=== PATIENT | female | born 1960 | race Caucasian/White ===

== ENCOUNTER → 2017-10-21 | Outpatient (CLI) | payer MEDICARE, BC ==
[~2017-10-21] MED LIST: ALPRAZOLAM 0.50.5 MG PO; AMATIZA PO; APAP500; APPEAREX2500 MCG PO; ASPIR 8181 MG PO; BENADRYL ALLERG25 MG; BIOTIN2500 MCG PO; CALCIUM; CALCIUM 500 +1 EAC5 PO; CENTRUM SILVER1 EAC1; CENTRUM SILVER1 EAC3 PO; CINNAMON PLUS1 EACH PO; CIPRO500 MG PO; CITRACAL-VIT D1 EACH PO; CITRATE OF MAG296 ML PO; CITRICAL; CLEOCIN HCL150 MG PO; COLACE100 MG PO; COMPAZINE10 MG PO; COMPLETE TABLE1 EACH PO; CYCLOBENZAPRINE10 MG PO; EFFEXOR XR150 MG PO; FIBER CHOICE1 EACH PO; FIBER GUMMIES2.5 GM PO; FISH OIL 1,0001 EAC5; FISH OIL 1,001000 M2 PO; FISH OIL 1,2001 EAC4 PO; FLAGYL; FLAGYL500 MG; FLAGYL500 MG PO; FOLIC ACID0.4 MG PO; GALZIN25 MG PO; GRANISETRON HCL1 MG; HYDROCODON-ACE1 EACH PO; HYDROCODONE-AP1 EA15 PO; HYOSCYAMINE0.375 M2 PO; IBUPROFEN 600600 M1 PO; IRON325 PO; KEFLEX500 MG PO; KEPPRA1000 MG PO; LAMICTAL 25 MG25 M1 PO; LAMICTAL100 MG PO; LAMOTRIGINE; LEVOTHYROXIN0.025 MG PO; LOTREL 10-40 M1 EACH PO; MAGNESIUM; MAGNESIUM OXID400 MG PO; MAGNESIUM250 M1; MAGNESIUM250 M1 PO; MELATONIN5 M1 PO; MIRALAX255 GM; NITROFURANTOIN100 MG PO; NORCO 5-325 TA1 EACH PO; ONDANSETRON HCL4 M2 PO; ONDANSETRON ODT4 MG PO; OS-CAL ULTRA T1 EACH PO; PERCOCET 5-3251 EACH PO; PHENERGAN 25 MG25 M1 PO; PHENERGAN 25 MG25 MG PO; PREMARIN0.625 MG PO; PRILOSEC40 MG PO; PROBIOTIC1 EAC1 PO; PROMETHAZINE HC25 M1 PO; SEROQUEL 50 MG50 MG NG; SINGULAIR 10 MG10 M1 PO; SLIPPERY ELM; SYNTHROID; SYNTHROID200 MCG; TEMODAR180 MG; TOPROL XL100 MG PO; UNICOMPLEX M TA1 TA1 PO; VALIUM5 MG PO; VITAMIN C 250250 MG; VITAMIN C 250250 MG PO; VITAMIN D35000 UNI1 PO; VITAMINC500 PO; XANAX 0.5 MG0.5 M1 PO; XANAX 0.5 MG0.5 MG PO; ZANTAC 150MG T150 MG PO; ZINC; ZOFRAN ODT4 MG PO; ZOLPIDEM TART12.5 MG
[2017-10-21 11:01] LABS: ABSOLUTE BASOPHILS 0.1 thou/uL (0.0-0.2); ABSOLUTE EOSINOPHILS 0.1 thou/uL (0.0-0.7); ABSOLUTE LYMPHOCYTES 1.4 thou/uL (0.8-5.3); ABSOLUTE MONOCYTES 0.4 thou/uL (0.0-1.2); ABSOLUTE NEUTROPHILS 2.2 thou/uL (1.6-8.1); BASOPHILS 1.3 %; EOSINOPHILS 1.6 %; HEMATOCRIT 36.5 % (37.0-47.0); HEMOGLOBIN 12.2 gm/dL (12.0-15.0); LYMPHOCYTES 33.9 %; MCH 31.7 pg (26.0-34.0); MCHC 33.6 g/dL (28.0-37.0); MCV 94.3 fL (80.0-100.0); MONOCYTES 10.5 %; MPV 7.5 fl. (7.2-11.1); NUCLEATED RBCS 0 /100WBC; PLATELET COUNT* 185 thou/uL (150-400); POLYS 52.7 %; RBC 3.86 mil/uL (4.20-5.00); WBC 4.1 thou/uL (4.0-11.0)
[2017-10-23 05:10] LABS: FREE TESTOSTERONE 0.2 pg/mL (0.0-4.2)
== END ==
LOC: M.LAB 10:32
PROVIDERS: Dermatology
DX: L65.0 Telogen effluvium (principal); L64.0 Drug-induced androgenic alopecia

== ENCOUNTER → 2018-03-08 | Outpatient (CLI) | payer OTHER | LOC: M.CT 14:00 | DX: Z13.6 Encounter for screening for cardiovascular disorders (principal) ==

== ENCOUNTER → 2018-07-18 | Outpatient (CLI) | payer MEDICARE, BC | LOC: M.WC 08:00 | DX: L59.8 Other specified disorders of the skin and subcutaneous tissue related to radiation (principal); C71.9 Malignant neoplasm of brain, unspecified; G62.9 Polyneuropathy, unspecified; F41.9 Anxiety disorder, unspecified; Z90.710 Acquired absence of both cervix and uterus; Y84.2 Radiological procedure and radiotherapy as the cause of abnormal reaction of the patient, or of later complication, without mention of misadventure at the time of the procedure ==

== ENCOUNTER 2018-09-30 13:55 | Inpatient (IN) | payer MEDICARE, BC ==
[~2018-09-30] VITALS: Ht 160 cm; Wt 85.7 kg
[~2018-09-30 13:55] MED LIST changes: +ANTIVERT25 MG PO; +BENADRYL25 MG PO; +FUROSEMIDE 20 M20 MG PO; +KEPPRA 500 MG500 MG PO; +OXYCODONE HCL 55 MG PO; +REQUIP5 MG PO
[2018-09-30 14:05] VITALS: BP 125/64
[2018-09-30] MEDS ORDERED: PROTONIX40 M1 PO (14:17)
[2018-09-30] MEDS ORDERED: EFFER-K 20 MEQ20 ME1 PO (14:19)
[2018-09-30] MEDS ORDERED: BENADRYL25 MG PO (14:20)
[2018-09-30] MEDS ORDERED: APPLE CIDER VI600 MG PO (14:21)
[2018-09-30 15:04] LABS: HEMOGLOBIN 9.4 gm/dL (12.0-15.0); MCH 33.7 pg (26.0-34.0); MCHC 33.5 g/dL (28.0-37.0); MCV 100.6 fL (80.0-100.0); MPV 6.9 fl. (7.2-11.1); NUCLEATED RBCS 0 /100WBC; PLATELET COUNT* 273 thou/uL (150-400); RBC 2.79 mil/uL (4.20-5.00); RDW-CV 17.7 % (10.5-14.5); WBC 2.5 thou/uL (4.0-11.0)
[2018-09-30 15:28] LABS: ALBUMIN 3.2 g/dL (3.4-5.0); ALKALINE PHOSPHATASE 46 U/L (46-116); ANION GAP 4 mmol/L (7-16); BUN 4 mg/dL (7-18); CALCIUM 8.3 mg/dL (8.5-10.1); CHLORIDE 102 mmol/L (98-107); CO2 34 mmol/L (21-32); GLUCOSE 120 mg/dL (70-99); POTASSIUM 3.5 mmol/L (3.5-5.1); SGOT 91 U/L (15-37); SGPT 67 U/L (30-65); SODIUM 140 mmol/L (136-145); TOTAL BILIRUBIN 0.6 mg/dL (<0.1-1.0); TOTAL PROTEIN 6.1 g/dL (6.4-8.2); TROPONIN-I LEVEL <0.06 ng/mL (<0.06)
[2018-09-30 15:52] LABS: ABSOLUTE LYMPHOCYTES 1.2 thou/uL (0.8-5.3); ABSOLUTE MONOCYTES 0.7 thou/uL (0.0-1.2); ABSOLUTE NEUTROPHILS 0.7 thou/uL (1.6-8.1)
[2018-09-30 15:53] LABS: ANISOCYTOSIS 1+; PLATELET ESTIMATE ADEQUATE; POLYCHROMASIA 1+
--- NOTE | 2018-09-30 16:38 | EKG ---
[place] [address] ELECTROCARDIOGRAM REPORT Name: ELISE RECINOS Room: [facility]#: [id number] Admission: 09/30/18 Attend Phys: Discharge: Date of : 58 Report #: [id number] THIS REPORT FOR: //name// [facility] ED Test Date: 2018-09-30 Test Time: 14:42:08 Pat Name: ELISE JONESDepartment: Room: Gender: F Platform Beater: Tadeo HOANG : 1960 Requested By: Ailyn Hernandez Order Number: [id number] MD: Arnaldo Napoles Measurements Intervals Strawberry Rate: 92 P: 65 AK: 136 QRS: 5 QRSD: 90 T: 32 QT: 377 QTc: 467 Interpretive Statements Sinus rhythm Low voltage, precordial leads Borderline T abnormalities, anterior leads Compared to ECG 11/01/2016 17:40:20 Low QRS voltage now present T-wave abnormality now present Right ventricular hypertrophy no longer present Electronically Signed On 09-30-2018 16:37:53 CDT by Arnaldo Napoles [email or web address] <ELECTRONICALLY SIGNED> By: Arnaldo Napoles MD, FAC 09/30/18 1637 [id number] Arnaldo Napoles MD, FAC /EPI
[2018-09-30 21:59] VITALS: BP 134/71
[2018-09-30 22:01] VITALS: BP 96/48
[2018-10-01 03:58] LABS: HEMOGLOBIN 8.5 gm/dL (12.0-15.0); MCH 34.1 pg (26.0-34.0); MCHC 34.1 g/dL (28.0-37.0); MCV 100.1 fL (80.0-100.0); MPV 7.2 fl. (7.2-11.1); RBC 2.5 mil/uL (4.20-5.00); RDW-CV 17.1 % (10.5-14.5); WBC 2.8 thou/uL (4.0-11.0)
--- NOTE | 2018-10-01 03:58 | NUR ---
ASSUMED CARE OF PT AT THE TIME OF ADMISSION FROM ER. PT ALERT, ORIENTED AND PLEASANT WITH CARE. REDNESS NOTED ON BILATERAL LEGS, NO SKIN BREAKDOWN. ELEVATED LEGS ON PILLOWS. PAIN MED GIVEN, FALL PRECAUTIONS IN PLACE. WILL MONITOR PT.
[2018-10-01 04:54] LABS: CALCIUM 7.9 mg/dL (8.5-10.1); CREATININE 0.9 mg/dL (0.6-1.3); MAGNESIUM 1.6 mg/dL (1.8-2.4); POTASSIUM 3.2 mmol/L (3.5-5.1)
[2018-10-01 06:00] VITALS: BP 103/42
--- NOTE | 2018-10-01 14:52 | NUR ---
PT TRANSFERED TO /S, ROOM 310. REPORT GIVEN TO MEGAN GUTIERREZ. ALL PT BELONGINGS SENT WITH PT INCLUDING CELL PHONE, TABLET, WATER PIC, AND ELECTRIS TOOTH BRUSH.
[2018-10-01 15:00] VITALS: BP 125/55
--- NOTE | 2018-10-01 17:19 | NUR ---
PATIENT TRANSFERED FROM ICU THIS AFTERNOON. PATIENT HAD COMPLAINTS OF PAIN AND ITCHING, TREATED ADEQUATELY WITH MEDICATIONS GIVEN. PATIENT IS UP WITH ASSIST OF ONE. PATIENT HAS SLEPT THIS EVENING. PATIENT DENIES ANY NEEDS AT THIS TIME. CALL LIGHT WITHIN REACH. WILL CONITNUE TO MONITOR.
[2018-10-01 18:02] VITALS: BP 179/54
[2018-10-02 00:09] VITALS: BP 112/55
[2018-10-02 04:16] LABS: HEMATOCRIT 26.3 % (37.0-47.0); HEMOGLOBIN 8.8 gm/dL (12.0-15.0); MCH 33.3 pg (26.0-34.0); MCHC 33.3 g/dL (28.0-37.0); MCV 99.8 fL (80.0-100.0); MPV 7.4 fl. (7.2-11.1); NUCLEATED RBCS 0 /100WBC; PLATELET COUNT* 257 thou/uL (150-400); RBC 2.63 mil/uL (4.20-5.00); RDW-CV 17.2 % (10.5-14.5); WBC 2.8 thou/uL (4.0-11.0)
[2018-10-02 04:26] LABS: CALCIUM 8.7 mg/dL (8.5-10.1); CREATININE 0.9 mg/dL (0.6-1.3); MAGNESIUM 1.9 mg/dL (1.8-2.4); POTASSIUM 3.2 mmol/L (3.5-5.1)
--- NOTE | 2018-10-02 05:19 | NUR ---
PATIENT UP WITH STANDBY TO BATHROOM SHE GOT READY FOR BED. PT THEN IN BED AND LEFT FOR HOME. PT SLEPT WELL. PT WITH MIDNIGHT SAT AT 85% ON RA. PT DROWSY AND INCOHERENT. PT PLACED ON O2 @ 2 LITERS AND SATS CAME UP IMMEDIATELY TO 95%. PT LEFT ON 2LITERS AT THIS TIME. PT CONTINUED TO BE DROWSY AND MIDNIGHT DIAZEPAM HELD AT THIS TIME. PT WITH SALINE LOCK IN LT AC, PATENT. PT DENIES NEEDS AT THIS TIME. FREQUENTLY USED ITEMS AND CALL LIGHT WITHIN REACH. SIDERAILS UPX3 AND BED ALARM ON. WILL CONTINUE TO MONITOR.
[2018-10-02 06:19] LABS: ABSOLUTE LYMPHOCYTES 1.1 thou/uL (0.8-5.3); ABSOLUTE MONOCYTES 0.6 thou/uL (0.0-1.2); ABSOLUTE NEUTROPHILS 1.1 thou/uL (1.6-8.1); ATYPICAL LYMPHS 9 %; MYELOCYTES 1 %
[2018-10-02 06:20] LABS: ANISOCYTOSIS 1+; PLATELET ESTIMATE ADEQUATE; POLYCHROMASIA 2+
[2018-10-02 07:25] VITALS: BP 101/58
--- NOTE | 2018-10-02 09:18 | CON ---
[address] [address] CONSULTATION Name: ELISE RECINOS Room: [address] IN M.R.#: [id number] Admission: 09/30/18 Attend Phys: Rita Bautista MD Discharge: Date of : 58 Report #: [id number] THIS REPORT FOR: //name// CC: Rita Herman MD REASON FOR CONSULTATION: History of GBM and leukopenia. HISTORY OF PRESENT ILLNESS: The patient is a 58-year-old female seen at [facility]. She has a history of a GBM found in late 2017. She had laser ablation type therapy and has been on Temodar of varying schedule since that time. Note that she also has a history of a grade 2 astrocytoma in 2008. The patient was seen because of bilateral extremity edema, pain, redness and maybe low-grade fever. She was also found to have mildly low white count about 2.5 with an ANC of 700. The patient describes that she has had her last MRI of the head, was several weeks ago that they were happy with. She talks about a rash and itching being present since about a week before Jb, though in talking with her significant other outside the room sound like the actual visible rash may have been excoriations from scratching. She still itches a lot on her lower extremities. She has been off steroids since about mid-July. She has gained about 60 pounds in the last 5 months. She does have some leg swelling, both her and her significant other think it is slightly better today. It sounds like she had low-grade fevers but this is like it has maybe been going on for several weeks. Note that also an ultrasound of the legs yesterday did not reveal a clot, the CT angiogram did not for any pulmonary emboli. She is currently on some antibiotics. Today, she mostly is complaining about leg swelling, leg pain, leg itching. To me it sounds neuropathy/neuritic in nature. In the past, this is like she has declined Neurontin but I do not think she had tried Cymbalta either. She is worried about weight gain with the Cymbalta. She is worried about medications being given that was not what they were originally "designed" for. The patient describes her thinking is so slow though she can eventually get the words. No swallowing trouble. She did feel short of breath, but I wonder if it is from the 60-pound weight gain. She has not had any new bowel troubles. She did have some slight reflux type troubles. She has not had any new constipation or diarrhea, no blood in her urine or stool, has red legs as mentioned above. PAST MEDICAL HISTORY: Notable for a grade 2 astrocytoma in 2008, sounds like it was completely resected, maybe had radiation therapy, then chemo during the year. She does know the drugs, sounds like it might have been IV, so I am not sure if it is PCV or what she got . In 04/2018, she was found to [place] [address] CONSULTATION Name: ELISE RECINOS Room: [address] IN M.R.#: [id number] Admission: 05/10/19 Attend Phys: Rita Bautista MD Discharge: Date of : 58 Report #: [id number] It sounds she underwent some sort of laser therapy that has been on Temodar and is also on dexamethasone for several different regimens. As noted above, the last steroid was given in mid-July. Also, has a history of headaches, may be migraines, possible neuropathy. Also, fibromyalgia, also had cholecystectomy, bladder sling x 2, kidney stones, hypothyroid, seizures in the past, tonsillectomy, appendectomy, breast augmentation, hysterectomy, bilateral feet surgeries. MEDICATIONS: At this time in the hospital currently include Lovenox 40 mg at bedtime, melatonin 10 at bedtime, meclizine 25 mg daily, levetiracetam 500 b.i.d., furosemide 20 daily IV, lactobacillus 1 tab daily, ceftriaxone 1 g daily, Valium 5 mg q. 6 scheduled, pantoprazole 40 mg daily, Xanax 0.5 mg before meals, levothyroxine 0.025 mg daily, IV electrolyte replacements. 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 FAMILY HISTORY: Noncontributory. PHYSICAL EXAMINATION: GENERAL: The patient appears her stated age, quite anxious, slight pressured speech. VITAL SIGNS: Height 5 feet 3 inches, 160 cm, weight 189 pounds, 85.7 kilograms. Blood pressure is currently 103/42, respirations 16, pulse 110, temperature 98.2. MOOD: She is slightly anxious and conversant. Admits to slight tape delay in her thinking though she finds the words, moving all extremities. Speech and thought pattern generally normal. LUNGS: Clear to auscultation. No obvious wheezes or rhonchi. HEART: Regular rate. LYMPHATICS: No enlarged lymph nodes in the supraclavicular, cervical, axillary region. ABDOMEN: Slightly obese. EXTREMITIES: He does have some slight edema at the mid shins and mid calves. Redness is mildly pink up to mid thighs. There was no clear demarcation. The patient does have pain on exam with continued pressure. LABORATORY DATA: Electrolytes fairly normal, though potassium is 3.2, BUN 3, creatinine 0.9. AST 91, note that it was elevated in August at 89 also; total bilirubin 0.6; magnesium 1.6; ALT also slightly elevated at 67, it was 160 back in August; total protein 6.1, albumin 3.2. Recent white count today is 2.8, yesterday 2.5; hemoglobin yesterday 9.4, today 8.5 after hydration and medications and redraw: MCV 100.6, RDW 17.1, platelets 240. Differential nonacute. Neutrophils ANC yesterday was 700[place] [address] CONSULTATION Name: ELISE RECINOS Room: [address] ADM IN [facility]#: [id number] Admission: 09/30/18 Attend Phys: Rita Bautista MD Discharge: Date of : 58 Report #: [id number] IMAGING: This admit included the CT angiogram that showed no evidence of pulmonary emboli or acute process although bilateral venous Dopplers showed no evidence of DVT. There was a small amount of subcutaneous edema noted in both lower extremities. Chest x-ray showed no acute cardiopulmonary abnormalities. ASSESSMENT AND PLAN: 1. History of glioblastoma multiforme status post laser ablation, also has been on Temodar. The patient reports and significant other seemed to confer the recent MRI was good without progression. I am not sure if there is response or not. Would continue holding next dose, which probably is not due for another several weeks anyway until the patient sees Dr. Herman again. 2. Leukopenia, very mild, would expect recovery. We will check again and follow serial counts. 3. Anemia, likely related to blood counts. No history of bleeding. 4. Possible cellulitis. Agree with antibiotics and Infectious Disease consult though a large part of this may be chronic redness and swelling and perhaps vascular disease or neuropathy. 5. Redness and pain and itching of legs. I wonder if this is probably neuritic in nature. She has been reluctant to try Neurontin in the past. May be worthwhile considering alpha lipoic acid or L-glutamine as an outpatient. Could also consider followup with palliative care to help with symptom management in the office. She met with him once before. 6. Hypothyroid. Continue replacement. 7. Fibromyalgia. No current active medications. 8. Sleep disorder, has been on melatonin. 9. History of seizures. Continue levetiracetam. We will follow with you. <ELECTRONICALLY SIGNED> By: Billy Obrien MD 10/02/18 0918 1037 [id number] Obrien MD /nt
--- NOTE | 2018-10-02 16:14 | NUR ---
PATIENT RESTING IN BED. PATIENT HAS HAD COMPLAINTS OF GENERAL PAIN TODAY, TREATED ADEQUATELY WITH MEDICATION. PATIENT HAS BEEN UP AD JOCELINE IN ROOM. PATIENT HAS GOOD APPETITE. PATIENT HAS BEEN NAPPING THIS AFTERNOON, OXYGEN ON AT 2L/NC WHILE SLEEPING. PATIENT DENIES ANY NEEDS AT THIS TIME. CALL LIGHT WITHIN REACH. WILL CONTINUE TO MONITOR.
[2018-10-02 21:05] VITALS: BP 111/50
[2018-10-03 04:38] LABS: HEMATOCRIT 26.9 % (37.0-47.0); HEMOGLOBIN 9.1 gm/dL (12.0-15.0); MCH 33.7 pg (26.0-34.0); MCHC 33.7 g/dL (28.0-37.0); MPV 7.6 fl. (7.2-11.1); RBC 2.69 mil/uL (4.20-5.00)
[2018-10-03 05:07] LABS: CALCIUM 8.9 mg/dL (8.5-10.1); CREATININE 0.8 mg/dL (0.6-1.3); MAGNESIUM 1.7 mg/dL (1.8-2.4); POTASSIUM 3.8 mmol/L (3.5-5.1)
--- NOTE | 2018-10-03 05:12 | NUR ---
PT SLEPT MOST OF SHIFT. ASSESSMENT DOCUEMENTED. MEDS GIVEN PER E-MAR. IV PATENT, ABX INFUSED. PAIN MEDS GIVEN PER E-MAR FOR HEAD, BACK AND LEG PAIN WITH RELIEF. PT KEPT LEGS ELEVATED MOST OF SHIFT. PT UP TO BATHROOM WITH ASSIST OF 1. WILL CONTINUE WITH PLAN OF CARE.
[2018-10-03 07:40] VITALS: BP 109/62
--- NOTE | 2018-10-03 09:03 | CON ---
[address] [address] CONSULTATION Name: ELISE RECINOS Room: [address] IN .R.#: [id number] Admission: 09/30/18 Attend Phys: Rita Bautista MD Discharge: Date of : 58 Report #: [id number] THIS REPORT FOR: //name// CC: Rita SETH DATE OF SERVICE: 10/02/2018 INFECTIOUS DISEASE CONSULTATION REASON FOR CONSULTATION: Cellulitis legs. HISTORY OF PRESENT ILLNESS: A 58-year-old white woman admitted through the Emergency Room with swelling and pain of lower extremities, diagnosed with cellulitis, started on ceftriaxone. The patient is rather somnolent today. She asked me whether I was told about her and what she meant to tell me is that she is "strong as a bull." PAST MEDICAL HISTORY: Glioblastoma multiforme recently diagnosed on treatment with chemotherapy. Cholecystectomy. Bladder sling. Kidney stones. Seizure disorder from brain cancer. Breast augmentation, hysterectomy, bilateral foot surgery. DRUG ALLERGIES: SULFA, METRONIDAZOLE, TRAZODONE AND HYDROMORPHONE. MEDICATIONS: The patient on treatment with enoxaparin, melatonin, Fermental as directed, meclizine, levetiracetam, furosemide, lactobacillus acidophilus, ceftriaxone 1 g IV daily, diazepam, pantoprazole, alprazolam, levothyroxine, potassium, phosphorus and magnesium replacement per protocol, p.r.n., Benadryl, ropinirole, oxycodone p.r.n., ondansetron p.r.n. She did receive a dose of vancomycin as well. SOCIAL HISTORY: See H and P. FAMILY HISTORY: See H and P. REVIEW OF SYSTEMS: As above. PHYSICAL EXAMINATION: GENERAL: Well-developed somnolent woman, afebrile since admission. VITAL SIGNS: Temperature 98, pulse 74, respirations 20, BP 112/55, height 5 feet 3 inches, weight 189 pounds. HEENMT: Within range. NECK: Supple. [place]GS: [place] [address] CONSULTATION Name: ELISE RECINOS Room: [address] [place] [facility]#: [id number] Admission: 09/30/18 Attend Phys: Rita Bautista MD Discharge: Date of : 58 Report #: [id number] HEART: S1, S2. ABDOMEN: Soft, no masses or megaly. EXTREMITIES: Erythema of legs, some swelling of legs and some point tenderness of legs. NEUROLOGIC: Grossly within normal limits. LABORATORY DATA: Sodium 144, potassium 3.2, BUN 4, creatinine 0.9, glucose 115, albumin 3.2. NT-proBNP 694. WBC 2800, hemoglobin 8.8 g/dL, platelets 257,000. Urinalysis pending. Blood cultures negative. RADIOLOGY EVALUATION: Chest x-ray, no acute abnormalities. Ultrasound venous circulation in lower extremities is negative for DVT. CT chest PE protocol negative for pulmonary embolism. No acute abnormalities. ASSESSMENT: 1. Swelling and redness legs with pain, possible cellulitis. 2. Leukopenia, possible secondary to chemotherapy. 3. Anemia. 4. Glioblastoma multiforme, on chemotherapy. SUGGESTIONS: Recommend continue Rocephin. Obtain ESR and CRP. Usually dose must be elevated or at least are usually elevated during the acute episode of cellulitis. If this is not the case, the diagnosis is in doubt. Dr. Bautsita thank you for requesting our suggestions in the care of your patient. <ELECTRONICALLY SIGNED> By: Woo Perez MD 10/03/18 0903 0509 1908Woo Perez MD /nt
--- NOTE | 2018-10-03 16:27 | NUR ---
SW met with pt to complete initial assessment, introduce self, and SW role. Pt was sleeping but awoke to speak with SW and was oriented. Pt lives at home with her and expresses that pt is caregiver. Pt mentioned that she has brain cancer and hopes to continue treatment at . SW to continue to follow to assist with safe dc planning.
--- NOTE | 2018-10-03 16:29 | NUR ---
PATIENT UP WITH ASSISTANCE AROUND ROOM, STEADY GAIT NOTED. PRN OXY IR GIVEN FOR PAIN, PATIENT NOTED TO BE SLEEPING AFTER DOSES GIVEN. HERSON LE'S ELEVATED ORDERED. WOUND CONS PLACED FOR POSSIBLE LEG WRAPPINGS, AWAITING WOUND NURSE TO ROUND. IV REMAINS SL, ABX DC'D. NEUROTIN STARTED THIS SHIFT TID.
[2018-10-03 16:57] VITALS: BP 134/63
[2018-10-03 20:15] VITALS: BP 113/56
[2018-10-04 04:07] LABS: HEMATOCRIT 26.5 % (37.0-47.0); HEMOGLOBIN 8.9 gm/dL (12.0-15.0); MCH 33.7 pg (26.0-34.0); MCHC 33.7 g/dL (28.0-37.0); MPV 7.4 fl. (7.2-11.1); RBC 2.65 mil/uL (4.20-5.00); RDW-CV 17.3 % (10.5-14.5)
[2018-10-04 04:34] LABS: CALCIUM 8.6 mg/dL (8.5-10.1); CREATININE 0.8 mg/dL (0.6-1.3); MAGNESIUM 1.8 mg/dL (1.8-2.4); POTASSIUM 3.9 mmol/L (3.5-5.1)
--- NOTE | 2018-10-04 05:53 | NUR ---
PT SLEPT MOST OF SHIFT. ASSESSMENT DOCUMENTED. MEDS GIVEN PER E-MAR. IV PATENT. PT VERY DROWZY THIS SHIFT. LEGS REMANINED ELEVATED. WILL CONINUE WITH PLAN OF CARE.
[2018-10-04 06:45] VITALS: BP 104/46
[2018-10-04 07:20] VITALS: BP 119/55
--- NOTE | 2018-10-04 07:36 | NUR ---
WENT TO GIVE PATIENT AM MEDICATIONS. PT WOKE UP AND WAS UNABLE TO MOVE LEFT ARM BUT THOUGHT THAT SHE WAS MOVING IT. HER SPEECH WAS MORE SLURRED. AND SHE WAS UNABLE TO AMBULATE. SHE STATED THAT SOME LEFT WEAKNESS WAS NORMAL BUT SHE WAS UNSURE IF THIS AMOUNT WAS NORMAL FOR HER. SYSTEMS COORDINATOR NOTIFED AND SAW PATIENT. NIH SCALE DONE CHARTED. VITAL SIGNS CHARTED. DR NOTIFIED, REPORT GIVEN TO ONCOMING NURSE. PT SENT DOWN TO CT.
--- NOTE | 2018-10-04 16:53 | NUR ---
PATIENT UP WITH ASSISTANCE TO AMBULATE AND TO BATHROOM, UTILIZING WALKER. PATIENT HAD A CTA DONE THIS AFTERNOON, DR. PAGAN AND DR. BEARD NOTIFIED OF RESULTS. PATIENT TO START ASPIRIN FOR STROKE PROTOCOL. IV ABX RESTARTED THIS SHIFT PER ID. IV RESTARTED TO RIGHT AC. OXY IR GIVEN PRN FOR PAIN, PATIENT OBSERVED TO BE SLEEPING SOON AFTER GIVEN.
[2018-10-04 16:59] VITALS: BP 132/63
[2018-10-04 19:45] VITALS: BP 130/71
[2018-10-05 05:22] LABS: HEMATOCRIT 25.9 % (37.0-47.0); HEMOGLOBIN 8.7 gm/dL (12.0-15.0); MCH 33.4 pg (26.0-34.0); MCHC 33.5 g/dL (28.0-37.0); MCV 99.7 fL (80.0-100.0); MPV 7.5 fl. (7.2-11.1); RBC 2.6 mil/uL (4.20-5.00); RDW-CV 16.7 % (10.5-14.5); WBC 3.2 thou/uL (4.0-11.0)
--- NOTE | 2018-10-05 05:26 | NUR ---
PT SLEPT MOST OF SHIFT. ASSESSMENT DOCUMENTED. MEDS GIVEN PER E-MAR. IV PATENT, ABX INFUSED. PAIN MEDS GIVEN PER E-MAR WITH RELIEF. LOTION APPLIED TO LEGS. LEGS REMAINED ELEVATED IN BED. WILL CONTINUE WITH PLAN OF CARE.
[2018-10-05 05:34] LABS: CALCIUM 8.3 mg/dL (8.5-10.1); CREATININE 0.8 mg/dL (0.6-1.3); MAGNESIUM 1.6 mg/dL (1.8-2.4); POTASSIUM 3.5 mmol/L (3.5-5.1)
[2018-10-05 09:10] VITALS: BP 128/66
--- NOTE | 2018-10-05 13:12 | NUR ---
WOUND CARE NOTE: CONSULT RECEIVED FOR EVALE BLE EDEMA, WRAP RECOMMENDATIONS. PATIENT WITH LEGS ELEVATED. 1+ EDEMA NOTED, GOOD PEDAL PULSES. PATIENT ADMITS TO A BURNING SENSATION TO BLE AND CALF PAIN DURING AMBULATION, BUT RESOLVES WITH REST. PATIENT STATES SHE HAS INQUIRED OF HER PCP BEFORE IF SHE SHOULD BE WEARING COMPRESSION, BUT WAS TOLD NO. APPLIED LOTION TO BILATERAL LEGS THEN APPLIED SINGLE LAYER TUBIGRIP FOR SLIGHT COMPRESSION. EDUCATED PATIENT TO KEEP LEGS ELEVATED AND IT MAY BE A GOOD IDEA TO FOLLOW UP WITH VASCULAR SURGERY SO THEY COULD PERFORM OUTPATIENT TESTING ON LEGS TO SEE IF SHE NEEDS FURTHER INTERVENTION. RECOMMEND. KEEP LEGS ELEVATED FOLLOW UP WITH VASCULAR SURGERY SINGLE LAYER TUBIGRIP AT THIS TIME FOR LIGHT COMPRESSION
[2018-10-05 14:30] VITALS: BP 128/66
[2018-10-05 16:25] VITALS: BP 145/77
--- NOTE | 2018-10-05 16:52 | NUR ---
PATIENT RESTING IN BED. PATIENT IS UP WITH MINIMAL ASSIST. PATIENT HAS BEEN UP TO CHAIR X 1 AND HAS FEET ELEVATED WHILE IN BED. PATIENT HAD TUBGRIPS APPLIED TO BLE BY WOUND CARE NURSE. PATIENT HAD COMPLAINTS OF PAIN X 1 TREATED ADEQUATELY WITH OXY IR. PATIENT UNABLE TO HAVE MRI DUE TO NEUROSTIMULATOR, DR PARMAR NOTIFIED. PATIENT HAS GOOD APPETITE. PATIENT DENIES ANY NEEDS AT THIS TIME. CALL LIGHT WITHIN REACH. WILL CONTINUE TO MONITOR.
[2018-10-05 20:45] VITALS: BP 124/64
[2018-10-06 04:20] LABS: ABSOLUTE LYMPHOCYTES 1.3 thou/uL (0.8-5.3); ABSOLUTE MONOCYTES 0.7 thou/uL (0.0-1.2); ABSOLUTE NEUTROPHILS 1.2 thou/uL (1.6-8.1); EOSINOPHILS 0.7 %; HEMATOCRIT 28.2 % (37.0-47.0); HEMOGLOBIN 9.5 gm/dL (12.0-15.0); LYMPHOCYTES 40.8 %; MCH 33.2 pg (26.0-34.0); MCHC 33.8 g/dL (28.0-37.0); MCV 98.4 fL (80.0-100.0); MONOCYTES 20.7 %; MPV 7.5 fl. (7.2-11.1); NUCLEATED RBCS 0 /100WBC; PLATELET COUNT* 263 thou/uL (150-400); POLYS 36.8 %; RBC 2.87 mil/uL (4.20-5.00); RDW-CV 16.4 % (10.5-14.5); WBC 3.1 thou/uL (4.0-11.0)
[2018-10-06 04:33] LABS: CALCIUM 8.4 mg/dL (8.5-10.1); CREATININE 0.8 mg/dL (0.6-1.3); MAGNESIUM 2.1 mg/dL (1.8-2.4); POTASSIUM 3.4 mmol/L (3.5-5.1)
[2018-10-06 05:02] LABS: CHOLESTEROL 147 mg/dL (<200); HDL CHOLESTEROL 27 mg/dL (>40); LDL CHOLESTEROL 94 mg/dL (<100); TC:HDL 5.4 Ratio (Not establshd); TRIGLYCERIDE 131 mg/dL (<150); VLDL 26 mg/dL (<40)
[2018-10-06 05:07] LABS: SERUM ASSESSMENT CLEAR
--- NOTE | 2018-10-06 05:48 | NUR ---
PT SLEPT MOST OF SHIFT. ASSESSMENT DOCUMENTED. MEDS GIVEN PER E-MAR. IV PATENT, FLUIDS INFUSING. PAIN MEDS GIVEN PER E-MAR WITH RELIEF. PT INCONTINENT 1X THIS SHIFT. WILL CONTINUE WITH PLAN OF CARE.
[2018-10-06 09:20] VITALS: BP 114/64
--- NOTE | 2018-10-06 16:38 | NUR ---
SW discussed dc planning with Dr Truong and pt/family preference for inpt rehab at [facility] due to pt doctors and follow up all at . SW faxed referral to [facility] inpt rehab unit and left a message for admissions, then message received that they are reviewing referral. SW to continue to follow to assist with finalizing safe dc plan and inpt rehab placement.
--- NOTE | 2018-10-06 18:03 | NUR ---
PATIENT RESTING UP IN CHAIR. PATIENT IS UP WITH STANDBY ASSIST. PATIENT IS EDEMATOUS, TUBIGRIPS IN PLACE TO BILAT LOWER EXTREMITIES. LEGS HAVE BEEN ELEVATED WHILE IN BED. PATIENT DENIES ANY NEEDS AT THIS TIME. CALL LIGHT WITHIN REACH. WILL CONTINUE TO MONITOR.
[2018-10-06 21:30] VITALS: BP 131/71
--- NOTE | 2018-10-07 05:44 | NUR ---
PT ALERT AND ORIENTED, HOWEVER CAN BE FORGETFUL. MEDS GIVEN PER EMAR. EMESIS NOTED TWICE THIS SHIFT. ZOFRAN GIVEN ON AFTER EACH EMESIS. TUBAR RADAR REPAIRER TO BLE. BLE ELEVATED IN BED. PT UP TO BATHROOM WITH WALKER AND STANDBY ASSIST. BED ALARM ON. CALL LIGHT WITHIN REACH. HOURLY ROUNDINGS MADE. HOURLY ROUNDINGS MADE. WILL CONTINUE PLAN OF CARE.
[2018-10-07 08:37] LABS: URINE BILIRUBIN NEGATIVE (Negative); URINE BLOOD NEGATIVE (Negative); URINE CLARITY CLEAR; URINE COLOR YELLOW; URINE GLUCOSE-RANDOM NEGATIVE (Negative); URINE KETONES NEGATIVE (Negative); URINE LEUKOCYTES-REFLEX NEGATIVE (Negative); URINE NITRITE-REFLEX NEGATIVE (Negative); URINE PROTEIN NEGATIVE (Negative); URINE UROBILINOGEN 0.2 E.U./dl (0.2-1.0)
[2018-10-07 08:45] VITALS: BP 130/65
--- NOTE | 2018-10-07 12:51 | NUR ---
Nutrition: Pt admitted with cellulitis of BLE. Wt: 189#, stable since admit. Regular diet, eating 100%. Albumin 3.2. No nutrition interventions needed at this time. Low risk.
--- NOTE | 2018-10-07 13:02 | NUR ---
THOMAS called and left message for Mary in inpt rehab admissions at to check on status of referral ph [phone]. Then THOMAS received message from Mary stating that the referral was still pending due to medical billing manager wants to discuss with oncology to assist with determining if inpt rehab at would be the most appropriate level of care for her. SW to continue to follow to assist with finalizing dc plan. Inpt rehab at does not admit outside admits over the weekend so if accepted today, would be able to dc, otherwise Wednesday.
--- NOTE | 2018-10-07 16:04 | NUR ---
PATIENT UP WITH ASSISTANCE AND USE OF WALKER. PRN OXY IR GIVEN X 1 FOR HEAD AND FEET PAIN THIS SHIFT, PATIENT OBSERVED TO BE SLEEPING SOON AFTER GIVEN. ZOFRAN PRN GIVEN X 1 THIS AM FOR NAUSEA. ORDERED CREAM APPLIED TO BI LE'S AND TUBAGRIPS REPLACED. PATIENT CONTINUES HAVING LEFT SIDED WEAKNESS.
--- NOTE | 2018-10-07 16:22 | NUR ---
COMMODITIES REQUIREMENTS ANALYST INFORMED OF THE NEED TO SEND REFERRALS TO INPATIENT ACUTE REHAB AT [facility] AND [facility], ACUTE INPATIENT REHAB HAD DENIED THE PATIENT. D/C VP SOFTWARE SPOKE TO INTAKE FOR BOTH FACILITIES AND FAXED A REFERRAL TO BOTH. CM AWAITING A RETURN CALL TO DISCUSS THE ABILITY TO ACCEPT THE PATIENT AT D/C. CM WILL REMAIN AVIALABLE TO ASSIST AND FOLLOW NEEDED. [facility] ACUTE INPATIENT REHAB PHONE: [phone] FAX: [phone] [facility] ACUTE INPATIENT REHAB PHONE: [phone] FAX: [phone]
[2018-10-07 17:11] VITALS: BP 121/62
[2018-10-08] VITALS: BP 129/69
[2018-10-08 04:39] LABS: ABSOLUTE MONOCYTES 0.8 thou/uL (0.0-1.2); ABSOLUTE NEUTROPHILS 1.3 thou/uL (1.6-8.1); BASOPHILS 1.1 %; EOSINOPHILS 0.8 %; HEMATOCRIT 28.8 % (37.0-47.0); HEMOGLOBIN 9.6 gm/dL (12.0-15.0); LYMPHOCYTES 47.8 %; MCH 33.1 pg (26.0-34.0); MCHC 33.4 g/dL (28.0-37.0); MCV 98.9 fL (80.0-100.0); MONOCYTES 18.6 %; MPV 7.7 fl. (7.2-11.1); NUCLEATED RBCS 0 /100WBC; PLATELET COUNT* 281 thou/uL (150-400); POLYS 31.7 %; RBC 2.91 mil/uL (4.20-5.00); RDW-CV 16.6 % (10.5-14.5); WBC 4.1 thou/uL (4.0-11.0)
[2018-10-08 04:47] LABS: CALCIUM 8.9 mg/dL (8.5-10.1); CREATININE 0.9 mg/dL (0.6-1.3); MAGNESIUM 1.9 mg/dL (1.8-2.4); POTASSIUM 3.7 mmol/L (3.5-5.1)
--- NOTE | 2018-10-08 06:20 | NUR ---
PATIENT SLEPT MOST OF THE NIGHT. PATIENT WAS GIVEN PAIN MEDICINE TWICE THIS SHIFT. TUBIGRIPS REMAIN TO BLE. PATIENT IS UP WITH ASSIST AND WALKER TO BATHROOM OR BEDSIDE COMMODE. PATIENT IS FORGETFUL AT TIMES. WILL CONTINUE TO MONITOR.
[2018-10-08 09:10] VITALS: BP 122/67
--- NOTE | 2018-10-08 11:07 | NUR ---
Following for d/c planning needs. Received message that [facility] inpatient rehab did not receive fax. Re-faxed packet to facility. Received telephone call. They currently do not have a bed today. Admissions said she would review information with her physician and call back re: acceptance. Will remain available to assist as needed.
[2018-10-08 12:00] VITALS: BP 109/59
[2018-10-08 15:30] VITALS: BP 132/79
--- NOTE | 2018-10-08 19:09 | NUR ---
PATIENT HAS BEEN A/O X 4, FORGETFUL AT TIMES. PATIENT MEDICATED FOR PAIN X 1 THIS SHIFT WITH RELIEF. PATIENT HAD REPEAT CT SCAN OF HEAD THIS SHIFT. PATIENT PARTICIPATED WITH OT/PT THIS SHIFT. PATIENT WITH LEFT SIDED WEAKNESS. PATIENT UP WITH ASSIST AND WALKER. PATIENT UP TO CHAIR FOR MEALS. SLEPT IN NAPS THIS SHIFT. DR BHAT UPDATED PATIENT'S THIS SHIFT. DC PLANNING IN PROCESS. FALL PRECAUTIONS IN PLACE. HOURLY ROUNDING COMPLETED. CALL LIGHT WITHIN REACH. WILL CONTINUE WITH PLAN OF CARE.
[2018-10-09] VITALS: BP 95/45
[2018-10-09 03:56] LABS: HEMOGLOBIN 9.1 gm/dL (12.0-15.0); MCH 33.4 pg (26.0-34.0); MCHC 33.9 g/dL (28.0-37.0); MCV 98.8 fL (80.0-100.0); MPV 7.3 fl. (7.2-11.1); NUCLEATED RBCS 0 /100WBC; PLATELET COUNT* 246 thou/uL (150-400); RBC 2.73 mil/uL (4.20-5.00); RDW-CV 16.1 % (10.5-14.5); WBC 3.1 thou/uL (4.0-11.0)
[2018-10-09 04:05] LABS: CALCIUM 8.6 mg/dL (8.5-10.1); MAGNESIUM 1.9 mg/dL (1.8-2.4); POTASSIUM 3.8 mmol/L (3.5-5.1)
[2018-10-09 04:30] VITALS: BP 96/46
[2018-10-09 07:22] LABS: ABSOLUTE LYMPHOCYTES 1.5 thou/uL (0.8-5.3); ABSOLUTE MONOCYTES 0.6 thou/uL (0.0-1.2); ABSOLUTE NEUTROPHILS 0.9 thou/uL (1.6-8.1); ANISOCYTOSIS 1+; PLATELET ESTIMATE ADEQUATE; POIKILOCYTOSIS 1+; POLYCHROMASIA Occasional
--- NOTE | 2018-10-09 07:25 | NUR ---
PATIENT SLEPT MOST OF THE NIGHT. PATIENT WAS GIVEN PAIN MEDICINE ONCE THIS SHIFT. PATIENT DID MUCH BETTER THIS SHIFT WHEN GETTING UP. WILL CONTINUE TO MONITOR.
[2018-10-09 08:45] VITALS: BP 119/61
[2018-10-09 16:00] VITALS: BP 127/70
--- NOTE | 2018-10-09 19:31 | NUR ---
PATIENT HAS BEEN A/O X 4 THIS SHIFT, FORGETFUL AT TIMES. PATIENT MEDICATED FOR PAIN X 1 THIS AFTERNOON. UP TO CHAIR INTERMITTENTLY THIS SHIFT. PATIENT AMBULATED IN HALLS WITH WALKER THIS SHIFT WITH . PATIENT TOOK SHOWER THIS SHIFT. NEW TUBIGRIPS PROVIDED TO PATIENT. HAS HAD LEGS ELEVATED WHILE IN CHAIR OR BED. APPETITE FAIR. PATIENT IN GOOD SPIRITS. HOURLY ROUNDING COMPLETED. CALL LIGHT WITHIN REACH. WILL CONTINUE WITH PLAN OF CARE.
[2018-10-09 20:45] VITALS: BP 121/67
--- NOTE | 2018-10-10 05:48 | NUR ---
PATIENT SLEPT MOST OF THE NIGHT. PATIENT WAS GIVEN PAIN MEDICINE TWICE THIS SHIFT. PATIENT WAS ALSO NAUSEATED THIS SHIFT AND WAS GIVEN ZOFRAN TWICE. PATIENT COULD POSSIBLY LEAVE TODAY OR TOMORROW IF PATIENT GETS ACCEPTED TO REHAB FACILTY. WILL CONTINUE TO MONITOR.
[2018-10-10 08:20] VITALS: BP 133/71
--- NOTE | 2018-10-10 12:50 | NUR ---
SW following to continue to assist with safe dc planning and placement at inpt rehab. [facility] had previously denied stating that they felt pt was more apporpriate for SNF; SW spoke with nicole Hernandez at [facility] and provided updates and faxed info, their medical office technician to reconsider due to pt change in status. SW faxed updates to other referrals as well: [facility] and [facility]. [facility] considering and [facility] said that they would not have any beds available today and would prefer pt go to [facility] instead. SW to continue to follow up with [facility] and [facility]; possible for pt to dc to inpt rehab today pending referral acceptance.
--- NOTE | 2018-10-10 16:31 | CON ---
[address] [address] CONSULTATION Name: ELISE RECINOS Room: [address] IN M.R.#: [id number] Admission: 09/30/18 Attend Phys: Rita Bautista MD Discharge: Date of : 58 Report #: [id number] THIS REPORT FOR: //name// CC: Rita SETH DATE OF SERVICE: 10/04/2018 HISTORY OF PRESENT ILLNESS: This is a 58-year-old female patient who was evaluated by me because the nurses noticed that the patient does not move the left arm this morning. She did not notice it and in hindsight, she thinks she woke up with that. She underwent a CT scan of the head and she had what appeared to be a stroke in the basal ganglion on the right side, but the duration is not clear. The history is further complicated by the fact that she had similar symptoms a few months ago and she went to [facility]. I do not know what workup they did on her. She has a history of primary malignancy of the brain. She underwent her first surgery about 10 years ago in [place] and subsequently has been followed at . She indicates the last time, they found some glioblastoma and they are doing some laser treatment. Prior to this, she had radiation surgery as well as chemotherapy, which was pretty extensive. REVIEW OF SYSTEMS: Also positive for the back pain. She has a stimulator there. She had numerous MRIs, all with contrast. She indicates the last one was in August. She had about 3-4 in the last few months, but I do not have any of that record because they were done outside. A 14-point review of system was carried out, is positive for some pancytopenia. She is admitted with bilateral lower leg cellulitis. She has a history of CHF, abdominal pain. She had multiple allergies. She has a history of hysterectomy, breast augmentation. She has a question of seizure from her tumor and she is on Keppra for that. She does have some baseline visual problem. She does not have any new ENT, cardiac, respiratory, GI, , constitutional, musculoskeletal, psychiatric, throat, allergic symptom associated with present symptomatology. She has cellulitis for which she is admitted. She does have back pain, which is longstanding. PAST MEDICAL HISTORY: Positive for what looks like glioblastoma and it was other primary tumor in the past. FAMILY HISTORY: Negative for any early age stroke. SOCIAL HISTORY: She is and I talked [place] [address] CONSULTATION Name: ELISE RECINOS Room: [address] IN M.R.#: [id number] Admission: 09/30/18 Attend Phys: Rita Bautista MD Discharge: Date of : 58 Report #: [id number] PHYSICAL EXAMINATION: Indicates she is alert, responsive, able to follow simple commands. Cranial nerve examinations indicate that there are visual field deficits, but I am not able to localize that. She also appeared to have the weakness of the left side of the face. She is weak on the left upper and left lower extremity. Her position sense is present. Tone looks symmetrical. There is no cerebellar sign. I could not look at the fundus. Pulses are difficult to feel. There is no carotid bruit. Cardiac examinations appear noncontributory. She does not appear to be in any respiratory difficulty. Her vision and hearing looks adequate. She is moderately built individual. Her blood pressure is 104/46, respirations 18, pulse is 102, and temperature is 98.6. LABORATORY DATA: Her last GFR was 73. CT was reviewed and has been summarized above. IMPRESSION: This patient does appear to have an ischemic event on the CT and that will correlate clinically, but it is very difficult to tell how long this is going on. She had a stroke a few months ago, but we do not have any records. CT may be showing that stroke. She may have extended her stroke or had a new stroke, but that is difficult to determine. She does have a stimulator, but she tells me that MRI can be done with that, but we have to call the rep and there is some procedure involved with it. I need to check with MRI people because sometimes, they are reluctant to do that. Considering all this, I think doing a CT stroke protocol will be the best thing to do. Her GFR looks normal and the last dye she got was . I discussed with them MRIs, CT angio advantages and disadvantages of both, especially she has received multiple contrast on the MRI. The dye do accumulate in the body, but no adverse effects of that has been documented. I did talk to them about doing CT angiogram to see if there is anything, which we can do or need to do. I did discuss with them the potential complication of dye including kidney problems and renal shutdown. The patient and the understood that and wanted to proceed with CT stroke protocol and I ordered that. We will see what it shows and whether there is any need to proceed with MRI. MRI she just had one in August and she had multiple of them and all of the recent ones were done at and I would prefer that she had it there if she needs one. I also discussed with their options of going to [facility] and they will wait to see what the CT angio shows and we will follow up this patient. <ELECTRONICALLY SIGNED> By: Margarito Blackwood MD 10/10/18 1631 1008 1915Margarito Blackwood MD /nt
[2018-10-10 17:14] VITALS: BP 143/71
--- NOTE | 2018-10-10 17:27 | NUR ---
PATIENT IS ALERT AND ORIENTED. VITAL SIGNS ARE STABLE ON ROOM AIR. NO COMPLAINTS OF ANY KIND TODAY. PATIENT HAS BEEN IN STAND BY WITH WALKER AND GAIT BELT TO TE RESTROOM. CALL LIGHT IS IN REACH, WILL CONTINUE TO MONITOR.
[2018-10-10 21:30] VITALS: BP 123/66
[2018-10-11 04:11] LABS: ABSOLUTE BASOPHILS 0.1 thou/uL (0.0-0.2); ABSOLUTE LYMPHOCYTES 1.4 thou/uL (0.8-5.3); ABSOLUTE MONOCYTES 0.6 thou/uL (0.0-1.2); ABSOLUTE NEUTROPHILS 1.6 thou/uL (1.6-8.1); BASOPHILS 1.5 %; HEMATOCRIT 29.2 % (37.0-47.0); HEMOGLOBIN 9.9 gm/dL (12.0-15.0); LYMPHOCYTES 37.4 %; MCH 33.1 pg (26.0-34.0); MCHC 33.7 g/dL (28.0-37.0); MCV 98.2 fL (80.0-100.0); MONOCYTES 16.9 %; MPV 7.6 fl. (7.2-11.1); NUCLEATED RBCS 0 /100WBC; PLATELET COUNT* 283 thou/uL (150-400); POLYS 43.2 %; RBC 2.98 mil/uL (4.20-5.00); RDW-CV 15.8 % (10.5-14.5); WBC 3.6 thou/uL (4.0-11.0)
[2018-10-11 04:32] LABS: ALBUMIN 3.1 g/dL (3.4-5.0); CALCIUM 8.7 mg/dL (8.5-10.1); CREATININE 0.9 mg/dL (0.6-1.3); MAGNESIUM 1.9 mg/dL (1.8-2.4); POTASSIUM 4.2 mmol/L (3.5-5.1)
--- NOTE | 2018-10-11 10:29 | NUR ---
THOMAS called Mary with admissions at inpt rehab [phone] and she was awaiting answer for the reconsideration from their medical assisting program director. Then Mary called THOMAS back and said that pt was still denied due to medical assisting program director thinks that pt does not have enough medical complexity to need inpt rehab and she still feels pt would be more appropriate for SNF. [facility] denied again after meeting pt yesterday. [facility] still denied and did not have availability. THOMAS spoke with Dr Hill about dc planning; Dr Hill suggests [facility] inpt rehab considering pt, and then if not an option, referring pt to SNF close to pt/'s home. If pt/ choose pt to dc home with , Dr Hill recommends pt to have private duty assist and HH services to follow. SW to discuss with pt and continue to assist with safe dc planning.
--- NOTE | 2018-10-11 17:28 | NUR ---
ASSESSMENT COMPLETE. PT ALERT AND ORIENTED X4, FORGETFUL AT TIMES. PT UP IN ROOM WITH ASSISTANCE AND WALKER. PT VSS. PT WAITING FOR PLACEMENT. PT GIVEN PRN PAIN MEDICATION ONCE DURING THE DAY. SEE ASSESSMENT AND VITALS FOR OTHER DETAILS. CALL LIGHT WITHIN REACH, BED ALARM ON. WILL CONTINUE PLAN OF CARE
[2018-10-11 21:00] VITALS: BP 115/54
[2018-10-12 04:39] LABS: HEMATOCRIT 28.9 % (37.0-47.0); HEMOGLOBIN 9.7 gm/dL (12.0-15.0); MCH 33.2 pg (26.0-34.0); MCHC 33.7 g/dL (28.0-37.0); MCV 98.4 fL (80.0-100.0); MPV 7.5 fl. (7.2-11.1); RBC 2.94 mil/uL (4.20-5.00); RDW-CV 16.1 % (10.5-14.5); WBC 3.1 thou/uL (4.0-11.0)
[2018-10-12 05:12] LABS: ALBUMIN 3.2 g/dL (3.4-5.0); CALCIUM 8.7 mg/dL (8.5-10.1); CREATININE 0.9 mg/dL (0.6-1.3); MAGNESIUM 1.9 mg/dL (1.8-2.4); POTASSIUM 4.3 mmol/L (3.5-5.1)
--- NOTE | 2018-10-12 05:34 | NUR ---
PT SLEPT MOST OF SHIFT. ASSESSMENT DOCUMENTED. MEDS GIVEN PER E-JUL. NO IV ACCESS THIS SHIFT. PT REPORTED BEING UPSET ABOUT HOW SHE HAS BEEN TREATED AND ASKED TO SPEAK WITH A PATIENT ADVOCATE, HAIR ASSISTANT NOTIFED AND TALKED TO PATIENT. PT REPORTS BEING UPSET STATING THAT NOONE HAD TOLD HER SHE HAD A STROKE AND THEN STATED SHE JUST MIGHT NOT REMEMBER THEM TELLING HER. PT ASKING FOR HER MEDICAL RECORDS TO REVIEW. PT EDUCATED THAT SHE HAD TO GO TO MEDICAL RECORDS DEPARTMENT TO GET THEM, PT STATED UNDERSTANDING. PAIN MEDS GIVEN PER E-MAR. WILL CONTINUE WITH PLAN OF CARE.
--- NOTE | 2018-10-12 10:28 | NUR ---
Pt accepted to inpt rehab today. THOMAS met with pt significant other Ovidio (pt was in the bathroom at the time) and explained pt able to dc to inpt rehab later this afternoon. SW acknowledged pt left SW a message yesterday afternoon stating that pt and pt sig. other would refuse usp/SNF placement at this time so they were pleased with dc to inpt rehab.
[2018-10-12] MEDS ORDERED: MINOCIN50 MG PO (12:50)
[2018-10-12] MEDS ORDERED: ASPIR 8181 MG PO (12:55)
[2018-10-12] MEDS ORDERED: BIOTIN5000 MC1 PO (12:57)
[2018-10-12] MEDS ORDERED: CENTRUM SILVER1 EAC4 PO (12:59)
[2018-10-12] MEDS ORDERED: DIAZEPAM 2MG TAB2 MG PO (13:01)
[2018-10-12] MEDS ORDERED: DIFLUCAN200 MG PO (13:02)
[2018-10-12] MEDS ORDERED: FIBER GUMMIES1 EACH PO (13:04)
[2018-10-12] MEDS ORDERED: FLORANEX TABLE1 EACH PO (13:06)
[2018-10-12] MEDS ORDERED: LIPITOR20 MG PO (13:07)
[2018-10-12] MEDS ORDERED: MAG-AL PLUS SUS30 ML PO (13:09)
[2018-10-12] MEDS ORDERED: SARNA ANTI-ITC222 ML TOP (13:14)
[2018-10-12] MEDS ORDERED: SENOKOT-S TABL1 EACH PO (13:15)
[2018-10-12] MEDS ORDERED: SPIRONOLACTONE25 M1 PO (13:16)
[2018-10-12] MEDS ORDERED: TYLENOL325 M1 PO (13:17)
[2018-10-12 13:30] VITALS: BP 128/66
[2018-10-12 18:49] VITALS: BP 128/66
[2018-10-12] MEDS ORDERED: GABAPENTIN 100100 MG PO (18:49)
== END 2018-10-12 18:49 | DRG 602 ==
LOC: M.ERS 13:55 → M.TBA-ER 17:45 → M.3W 17:45 → M.ICU 21:46 → M.3W 10-01 15:08
PROVIDERS: Family Medicine; Internal Medicine; Physician Assistant; Psychiatry & Neurology Neuromuscular Medicine; ADMIT Internal Medicine
DX: L03.116 Cellulitis of left lower limb (principal); D61.810 Antineoplastic chemotherapy induced pancytopenia; I63.89 Other cerebral infarction; E44.0 Moderate protein-calorie malnutrition; R65.10 Systemic inflammatory response syndrome (SIRS) of non-infectious origin without acute organ dysfunction; C71.9 Malignant neoplasm of brain, unspecified; E87.0 Hyperosmolality and hypernatremia; L03.115 Cellulitis of right lower limb; D64.9 Anemia, unspecified; D72.819 Decreased white blood cell count, unspecified; E03.9 Hypothyroidism, unspecified; G40.909 Epilepsy, unspecified, not intractable, without status epilepticus; E83.42 Hypomagnesemia; I87.8 Other specified disorders of veins; M79.7 Fibromyalgia; G47.9 Sleep disorder, unspecified; Z90.49 Acquired absence of other specified parts of digestive tract; Z87.442 Personal history of urinary calculi; Z85.841 Personal history of malignant neoplasm of brain; Z88.6 Allergy status to analgesic agent; Z88.2 Allergy status to sulfonamides; Z88.8 Allergy status to other drugs, medicaments and biological substances; Z68.33 Body mass index [BMI] 33.0-33.9, adult; Z79.82 Long term (current) use of aspirin; Z79.899 Other long term (current) drug therapy

== ENCOUNTER 2018-10-12 15:49 | Inpatient (IN) | payer MEDICARE, BC ==
[~2018-10-12] VITALS: Ht 160 cm; Wt 79.4 kg
[~2018-10-12 15:49] MED LIST changes: +APPLE CIDER VI600 MG PO; +BIOTIN5000 MC1 PO; +CENTRUM SILVER1 EAC4 PO; +DIAZEPAM 2MG TAB2 MG PO; +DIFLUCAN200 MG PO; +EFFER-K 20 MEQ20 ME1 PO; +FIBER GUMMIES1 EACH PO; +FLORANEX TABLE1 EACH PO; +LIPITOR20 MG PO; +MAG-AL PLUS SUS30 ML PO; +MINOCIN50 MG PO; +PROTONIX40 M1 PO; +SARNA ANTI-ITC222 ML TOP; +SENOKOT-S TABL1 EACH PO; +SPIRONOLACTONE25 M1 PO; +TYLENOL325 M1 PO
[2018-10-12] MEDS ORDERED: GABAPENTIN 100100 MG PO (18:49)
[2018-10-12 21:00] VITALS: BP 95/68
[2018-10-13 04:49] LABS: HEMATOCRIT 31.2 % (37.0-47.0); HEMOGLOBIN 10.4 gm/dL (12.0-15.0); MCH 32.9 pg (26.0-34.0); MCHC 33.5 g/dL (28.0-37.0); MCV 98.1 fL (80.0-100.0); MPV 7.7 fl. (7.2-11.1); RBC 3.18 mil/uL (4.20-5.00); RDW-CV 15.9 % (10.5-14.5); WBC 3.2 thou/uL (4.0-11.0)
[2018-10-13 05:31] LABS: CALCIUM 9.3 mg/dL (8.5-10.1); CREATININE 0.9 mg/dL (0.6-1.3); POTASSIUM 3.9 mmol/L (3.5-5.1)
--- NOTE | 2018-10-13 05:50 | NUR ---
PT ARRIVED ONTO UNIT AT 1900. ALERT AND ORIENTED X 4. CAN BE FORGETFUL. SLOW SPEECH. SLIGHT WEAKNESS TO LEFT SIDE. MIN ASSIST WITH GAIT BELT AND WALKER. UNSTEADY GAIT. UP TO BATHROOM. ALPRAZOLAM GIVEN AT HS PER PT REQUEST. PT WANTED TO BE ON O2 2L NC. SAYS THAT SOMETIMES FEELS SOA OR CHEST HEAVY WITH EXERTION. C/O PAIN TO HEAD/SHOULDER/LEGS. PAIN MED GIVEN. BLE TUBIGRIPS. LEGS UP ON PILLOW IN BED. LEFT JEROME HAS SMALL HEALING SCAB. PT ASKED TO KEEP COVERED WITH MEPILEX AND ALSO PICTURE TAKEN. DISCUSSED WITH PT AT LENGTH ABOUT NOT GETTING UP WITHOUT STAFF PRESENT. PT NOT PLEASED SHE LIKES TO BE ABLE TO WALK AROUND ROOM. SO SHE THEN KEPT PAPER AND PULP MILL OPERATOR IN ROOM FOR OVER 45 MIN WHILE SHE PUT AWAY PERSONAL ITEMS. SLEPT MOST OF THE NIGHT. CALL LIGHT IN REACH AND BED ALARM ON.
[2018-10-13 08:10] VITALS: BP 111/60
[2018-10-13 08:53] LABS: URINE BILIRUBIN NEGATIVE (Negative); URINE BLOOD NEGATIVE (Negative); URINE CLARITY CLEAR; URINE COLOR YELLOW; URINE GLUCOSE-RANDOM NEGATIVE (Negative); URINE KETONES NEGATIVE (Negative); URINE LEUKOCYTES-REFLEX NEGATIVE (Negative); URINE NITRITE-REFLEX NEGATIVE (Negative); URINE PROTEIN NEGATIVE (Negative); URINE UROBILINOGEN 0.2 E.U./dl (0.2-1.0)
--- NOTE | 2018-10-13 14:23 | NUR ---
Nutrition: Pt admitted to Rehab with Rt CVA. H/o glioblastoma, BLE cellulitis. Physician indicated moderate PCM - defer DX. BG WNL, albumin 3.2. Fair appetite. Wt was 189# until today's bed wt on Rehab which is 177#. PLEASE REWEIGH FOR ACCURACY. RD will order Ensure Enlive for added nutrition intake. Mild to mod risk at this time. Will follow per protocol.
--- NOTE | 2018-10-13 15:57 | NUR ---
SW met with pt to complete initial assessment, introduce self, and SW role on inpt rehab unit. Pt known to SW from pt stay on acute care. Pt was alert, oriented, talkative, wanting to get into bed to take a nap. SW encouraged pt to sit up a little while longer. Pt lives at home with her . Pt has a cane, walker, wheelchair. Not certain of any hx with HH or SNF. Pt receives oncology care through [facility]. Pt said she thinks she should be able to leave to go to [employer] to have her phone reactivated and fixed and then come back. Pt was able to be redirected and understanding of need for inpt rehab therapies for a while. SW to continue to follow to assist with safe dc planning.
--- NOTE | 2018-10-13 18:46 | NUR ---
PT VSS THIS SHIFT, AOX4 WITH FORGETFULNESS SECONDARY TO GLIOBLASTOMA. PT TOLERATING DIET AND PAIN MANAGEMENT THIS SHIFT. PT CAN BE FUSSY AT TIMES AND REQUIRES EXTENDED TIMES MOST TASKS. PT WEARS 2L O2 NC FOR COMFORT REASONS ONLY AND HAS O2 SATS GREATER THAN 96% ON AND OFF O2. STRAIGHT CATH RESIDUALS DISCONTINUED THIS SHIFT. MIRALAX ORDERED FOR PT DUE TO CONSTIPATION. PT HAS ALLERGIES TO SLEEPING MEDICATIONS. PT REQUESTED TO HAVE THERAPIES SPREAD APART TO DR DECKER AND HE WAS UPDATED THAT THE THERAPIES WERE SPREAD OUT BUT THE PT REQUIRED SUCH EXTENSIVE TIME DURING THEAPIES THAT THE SCHEDULED GAP BETWEEN THERAPIES WAS LOST. DR DECKER ADVISED THAT THERAPY BE VERY UPFRONT WITH THE PT REGARDING TIME ALOTTED FOR THERAPIES. HOURLY ROUNDING MAINTAINED AND PT ADVISED TO SHIFT POSITIONS FREQUENTLY DURING THERAPIES WHILE SITTING. WILL CONTINUE TO MONITOR AND ASSESS.
[2018-10-13 20:33] VITALS: BP 133/67
--- NOTE | 2018-10-14 02:39 | NUR ---
ASSUMED CARE AT 1930. PATIENT RESTED IN RECLINER UNTIL AROUND 1999. UP TO TOILET, GAIT BELT, WALKER. NEEDS EXTRA TIME. DOES OWN HYGIENE. TAKES PILLS WHOLE WITH WATER. O2 2L/NC FOR COMFORT. MEDICATED FOR PAIN AT HS. SEE JUL. MIPILEX TO LT QUEENIE, ASKED FOR TUBIGRIPS TO BE APPLIED UNDER SAFETY SOCKS BEFORE AMBULATION. HOURLY ROUNDS CONTINUE. BED ALARM ON. CALL LITE IN REACH.
--- NOTE | 2018-10-14 05:13 | NUR ---
SLEPT MOST OF THE NIGHT. NO C/O PAIN. HOURLY ROUNDS CONTINUE. CALL LITE IN REACH. BED ALARM ON.
[2018-10-14 09:15] VITALS: BP 117/63
[2018-10-14 11:13] VITALS: BP 117/63
--- NOTE | 2018-10-14 16:04 | NUR ---
PATIENT HAS BEEN ALERT AND ORIENTED X 4, SHE IS MIN ASSIST WITH TRANSFERS, GAIT BELT. AMBULATING TO AND FROM THE RESTROOM. ORDER FOR CT SCAN DUE TO INCREASE WEAKNESS LT SIDE. DR MARTINO AND VIEWED CT. CONT. TO MONITOR.
[2018-10-14 20:40] VITALS: BP 143/66
[2018-10-14 21:20] VITALS: BP 143/66
--- NOTE | 2018-10-15 06:08 | NUR ---
PT WAS EVACUATED OUT OF ROOM PER ABHIJIT WARNING PROTOCOL. WAS WITH PT BEGINIG OF SHIFT AND THROUGH [employer] WARNING. PT GIVEN MEDS PER EMAR. PAIN MED ALSO GIVEN THIS SHIFT. RELIEF NOTED. BED ALARM ON. CALL LIGHT WITHIN REACH. HOURLY ROUNDINGS MADE. WILL CONTINUE PLAN OF CARE.;
[2018-10-15 07:15] VITALS: BP 117/59
--- NOTE | 2018-10-15 17:22 | NUR ---
ASSUMED CARE AT 0730. ALERT ORIENTED. HX OF CVA AND BRAIN TUMOR SEIZURES. TRANSFERS WITH G BELT WALKER AND AMBULATES TO BR NEEDS CUES ON DIRECTION WITH WALKER ETC. PARTICIPATING IN THERAPIES. WANTS TO DO MANY THINGS ALL AT ONCE, ENCOURAGED TO DO ONE THING AT A TIME THEN STAFF CAN DO OTHER REQUESTS SHE MAY HAVE. FEEDS SELF AND TAKES MEDS WITHOUT DIFFICULTY NEEDS SET UP OPEN CONTAINERS ATTEMPTS TO DO THINGS AT TIMES. USES CALL LIGHT APPROPRIATELY FOR ASSIST. RESTED AFTER LUNCH FOR A TIME IN BED THEN HAD AFTERNOON P.T. SESSION.
[2018-10-15 20:11] VITALS: BP 121/57
--- NOTE | 2018-10-15 20:20 | NUR ---
RESTING IN BED WITH LEGS ELEVATED ON 3 PILLOWS AND WATCHING TV. PAIN MEDS GIVEN FOR COMPLAINT OF PAIN IN SHOULDERS, HEAD AND BACK RATED "9". SNACK PROVIDED. CALL LIGHT WITHIN REACH.
--- NOTE | 2018-10-16 05:40 | NUR ---
NO FURTHER COMPLAINT OF PAIN. STAYED UP LATE WATCHING TV. HOURLY ROUNDING IN PROGRESS.
[2018-10-16 08:00] VITALS: BP 113/57
--- NOTE | 2018-10-16 14:53 | NUR ---
ASSUMED CARE AT 0730. ALERT ORIENTED CAN BE FORGETFUL. HX OF CVA L SIDE WEAKNESS AND BRAIN CANCER. TRANSFERS WITH SBA G BELT WALKER AND CUEING FOR DIRECTION. USES CALL LIGHT APPROPRIATELY FOR ASSISTANCE. FEEDS SELF AND TAKES MEDS WITHOUT DIFFICULTY. C/O ARM PAIN MEDICATED WITH 1 PRN OXY IR PER PT. REQUEST. ALSO HAD C/O NAUSEA ZOFRAN GIVEN. HAD A LARGE BM IN BR TOILET. HAS HAD VISITORS TODAY. TO FOR LUNCH. DR. RIVAS ROUNDED NEUROLOGY. UP IN RECLINER THIS AFTERNOON. RESTED IN BED THIS A.M.
--- NOTE | 2018-10-16 16:45 | NUR ---
PT. HAD C/O CHEST WALL PAIN LEFT EKG WAS DONE PER DR. JENKINS ORDER AND WAS NORMAL. HAS HAD LOTS OF VISITORS TODAY. HERE VISITING.
[2018-10-16 19:58] VITALS: BP 109/67
--- NOTE | 2018-10-17 05:39 | NUR ---
ASSUMED CARE AT 1920. ALERT AND ORIENTED. PLEASANT BUT CAN BE FORGETFUL. NO FURTHER NAUSEA. C/O HEADACHE AND BACK PAIN. PT WANTED TO BE ON O2 2L NC WHILE IN BED. MIN ASSIST WITH GAIT BELT AND WALKER. UP TO BATHROOM. DOES OWN CARES. SLEPT WELL MOST OF THE NIGHT. USING CALL LIGHT APPROPRIATELY. BED ALARM ON.
--- NOTE | 2018-10-17 16:44 | NUR ---
PATIENT IS ALERT AND ORIENTED X 4, AMBULATING WITH ROLLING WALKER AND GAIT BELT. NO COMPLAINTS OF PAIN. DENIES PAIN OR DISCOMFORT, NO SIGN OF DISTRESS.
[2018-10-17 19:30] VITALS: BP 104/67
--- NOTE | 2018-10-17 20:35 | NUR ---
RESTING QUIETLY IN BED. JUST LEAVING. PAIN MEDS GIVEN FOR COMPLAINT OF GENERALIZED PAIN RATED "9". TAKES PILLS WHOLE A FEW AT A TIME WITH WATER. DECLINED OFFER OF A SNACK. FUSSY AND VERY PARTICULAR. MARKETING UNDERWRITER SPENT 30 MINUTES WITH PATIENT. DAY SHIFT MARKETING UNDERWRITER SPENT ONE HOUR IN PATIENT'S ROOM AT END OF DAY SHIFT ASSISTING PATIENT WITH GETTING READY FOR BED. PATIENT HAS BACK STIMULATOR CHARGING. CALL LIGHT AND TV REMOTE AND STRING TO LIGHT ALL WITHIN REACH.
[2018-10-18 04:25] LABS: HEMATOCRIT 32.4 % (37.0-47.0); HEMOGLOBIN 10.9 gm/dL (12.0-15.0); MCH 32.8 pg (26.0-34.0); MCHC 33.7 g/dL (28.0-37.0); MCV 97.4 fL (80.0-100.0); RBC 3.33 mil/uL (4.20-5.00); RDW-CV 15.2 % (10.5-14.5); WBC 3.5 thou/uL (4.0-11.0)
[2018-10-18 04:49] LABS: CALCIUM 9.5 mg/dL (8.5-10.1); MAGNESIUM 1.9 mg/dL (1.8-2.4); POTASSIUM 4.2 mmol/L (3.5-5.1)
--- NOTE | 2018-10-18 05:42 | NUR ---
RESTED QUIETLY UNTIL AWAKENED BY LAB AT ABOUT 0335. PAIN MEDICATION GIVEN AFTER LAB LEFT PER REQUEST FOR COMPLAINT OF GENERALIZED PAIN RATED "9". AMBULATED TO THE BATHROOM WITH SBA, GAITBELT, WALKER TO VOID. NEEDED MINIMAL ASSIST TO GET FROM LYING TO SITTING POSITION. NEED MINIMAL ASSIST WITH PULLING PANTS UP ON LEFT SIDE. 02 NC AT TWO LITERS PER PATIENT'S REQUEST. HOURLY ROUNDING IN PROGRESS.
[2018-10-18 07:20] VITALS: BP 107/64
[2018-10-18 10:16] VITALS: BP 107/64
--- NOTE | 2018-10-18 10:32 | EKG ---
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: LIN : 1960 Requested By: Mike Nunez Order Number: [id number] Reading MD: Arnaldo Napoles Measurements Intervals [place] Rate: 70 P: 50 IA: 154 QRS: 13 QRSD: 88 T: 54 QT: 403 QTc: 435 Interpretive Statements Sinus rhythm Probable left atrial enlargement RSR' in V1 or V2, probably normal variant Nonspecific T abnormalities, anterior leads Compared to ECG 09/30/2018 14:42:08 RSR' in V1 or V2 now present T-wave abnormality still present Electronically Signed On 10-18-2018 10:31:49 CDT by Arnaldo Napoles [email or web address] <ELECTRONICALLY SIGNED> By: Arnaldo Napoles MD, FAC 10/18/18 1031 1550 1550 Arnaldo Napoles MD, FAC /EPI
--- NOTE | 2018-10-18 17:06 | NUR ---
PATIENT IS ALERT AND ORIENTED TODAY, VERY FORGETFUL AND AGITATED MOST OF THE TIME. NO COMPLAINTS OF PAIN, VITAL SIGNS ARE STABLE ON ROOM AIR. REPORTED TO PROVIDER THAT NO BOWEL MOVEMENT HAS BEEN HAD ON 11 DAYS, EVEN THOUGH THAT IS INCORRECT. PROVIDER ORDERED NEW MEDICATIONS TO BE GIVEM, WILL GIVE AFTER DINNER. SHARA HAS MANY COMPLAINTS ABOUT MANY THINGS. CALL LIGHT IS IN REACH, WILL CONTINUE TO MONITOR
[2018-10-18 19:39] VITALS: BP 104/73
--- NOTE | 2018-10-18 19:45 | NUR ---
SITTING UP IN CHAIR IN HALLWAY DUE TO TORNADO WATCH. ANXIOUS, FUSSY, NEEDY. PAIN MEDICATION GIVEN PER REQUEST FOR COMPLAINT OF GENERALIZED PAIN RATED "9". GAVE SCHEDULED XANAX. TOOK MEDICATIONS WHOLE A FEW AT A TIME WITH BOTTLED WATER.
--- NOTE | 2018-10-19 05:00 | NUR ---
RESTED QUIETLY ALL NIGHT. NO COMPLAINTS VOICED. HOURLY ROUNDING IN PROGRESS.
[2018-10-19 07:00] VITALS: BP 91/36
--- NOTE | 2018-10-19 15:06 | NUR ---
THOMAS and Dr Nunez met with pt to review team conference summary and plan for pt to remain on rehab unit and continue therapies at least one more week with plan to reassess pt length of stay during team conference next Thursday 10/26. SW to continue to follow to assist with safe dc planning. Pt in agreement with plan and did not express any concerns or questions at this time.
--- NOTE | 2018-10-19 16:21 | NUR ---
ASSUMED CARE AT 0730. ALERT ORIENTED PLEASANT COOPERATIVE. HX OF CVA L SIDE WEAKNESS AND BRAIN CANCER. TRANSFERS WITH SBA G BELT WALKER AND AMBULATES TO BR. SITTING UP IN RECLINER AT BEDSIDE EATING BREAKFAST FEEDS SELF TAKES MEDS WITHOUT DIFFICULTY. PARTICIPATING IN THERAPIES. HERE VISITING AT BREAKFAST TIME. PT. IS FORGETFUL AT TIMES. BP WAS LOW THIS A.M. RECHECKED AND WAS WNL GAVE SPIRONALACTONE. DENIES DIZZINESS OR ISSUES STATES SHE JUST WOKE UP. P.T. STATED PT. WAS UP AMBULATING IN HER ROOM THIS AFTERNOON.
--- NOTE | 2018-10-19 18:59 | NUR ---
PT. WAS TRANSFERRED WITH ALL BELONGINGS TO ROOM 330 FOR CLOSER MONITORING FOR SAFETY.
[2018-10-19 20:00] VITALS: BP 109/52
--- NOTE | 2018-10-19 23:11 | NUR ---
ASSUMED CARE AT 1930. PATIENT UP IN RECLINER AT CHANGE OF SHIFT, WITH PATIENT. REMINDED OF SAFETY PROCEDURES INCLUDING NOT GETTING UP WITHOUT STAFF PRESENT. UP TO VOID PER TOILET, USES RISER. DOES OWN HYGIENE. TAKES EXTRA TIME WITH HS CARES. SAT AT SINK AND DID HER OWN CARES. TAKES PILLS WITH WATER. MEDICATED AT HS FOR PAIN AND SLEEP. MEDICATION ORDERS REVIEWED WITH PATIENT. CALL LITE IN REACH. BED ALARM ON. HOURLY ROUNDS CONTINUE.
--- NOTE | 2018-10-20 05:26 | NUR ---
HAS SLEPT SINCE ABOUT 2129. TURNS SELF. NO C/O PAIN. HOURLY ROUNDS CONTINUE. SLEEPING ON REGULAR BED. CALL LITE IN REACH.
[2018-10-20 08:30] VITALS: BP 101/43
[2018-10-20 08:56] VITALS: BP 101/43
--- NOTE | 2018-10-20 18:48 | NUR ---
PT VSS THIS SHIFT WITH APPROPRIATE PAIN MGMT REQUESTS. PT TOLERATES RA WHILE MAINTAINING O2 SATS GREATER THAN 94% BUT SOMETIMES USES 2L PER NC FOR COMFORT. PT TOLERATING DIET AND THERAPIES THIS SHIFT. HOURLY ROUNDING MAINTAINED THIS SHIFT. ON A SIDE NOTE IT HAS BEEN REPORTED BY THE PT THAT THE PT MOTHER TODAY AND IT MIGHT ALSO BE IMPORTANT TO NOTE THAT THE 'S PREVIOUS FROM CANCER WELL AROUND 8 YEARS AGO PER PT REPORT. PT AWARE OF HER MOTHER'S PASSING AT THIS TIME AND IS NOT SHOWING A LOT OF GRIEF/ANGUISH AT THIS TIME. WILL PASS ON TO NEXT SHIFT. PT ALSO IS UNDER THE IMPRESSSION THAT SHE IS ALLOWED TO BE MOD I IN THE ROOM WHEN FAMILY IS PRESENT, THIS RN DID HEAR THE PT AND DR DECKER DISCUSSING THIS BUT ONLY HEARD DR DECKER STATE THAT HE WOULD FOLLOW UP WITH THERAPIES, NO NEW ORDERS REGARDING AMBULATION HAVE BEEN WRITTEN AT THIS TIME. WILL PASS ON TO ADULT REMEDIAL EDUCATION INSTRUCTOR.
[2018-10-20 20:31] VITALS: BP 118/64
--- NOTE | 2018-10-21 05:37 | NUR ---
ASSUMED CARES AT 1920. ALERT AND ORIENTED. PLEASANT. C/O OF PAIN TO HEAD AND BACK. PAIN MED GIVEN NEEDED. PT REQUESTS TO HAVE ON O2 2L NC AT NIGHT. MIN ASSIST WITH GAIT BELT AND WALKER. UP TO BATHROOM. DOES OWN CARES. SLEPT OFF AND ON. USED CALL LIGHT APPROPRIATELY. BED ALARM ON.
[2018-10-21 09:03] VITALS: BP 111/66
--- NOTE | 2018-10-21 10:34 | NUR ---
ASSUMED CARE AT 0730. ALERT BUT DROWSY THIS A.M. HX OF BRAIN CANCER AND CVA L SIDE WEAKNESS. FEEDING SELF BUT STATES SHE KEEPS DROPPING STUFF LIKE POTATOES ON FLOOR. ALSO COULDNT SEE CALL LIGHT WHICH WAS ON BED LEFT SIDE. PT. STATED SHE DIDNT SLEP WELL LAST NIGHT AND SHE HAD BACK PAIN AND L FOOT PAIN RECEIVED PRN MEDS X 2. O.T. WORKING WITH HER AFTER BREAKFAST. RESTING IN BED AFTER O.T.
--- NOTE | 2018-10-21 13:35 | NUR ---
PT. IS MORE AWAKE NOW AND IS PARTICIPATING IN THERAPIES. DR. TEMPLETON ROUNDED AND WROTE ORDERS RE PRN PAIN MEDS. TO DR FOR LUNCH APPETITE GOOD. USES CALL LIGHT APPROPRIATELY ALL NEEDS PLACED CONVENIENTLY FOR PT.
--- NOTE | 2018-10-21 18:06 | NUR ---
PT. IS PROCESSING THINGS BETTER THIS AFTERNOON SUCH TRANSFERS STEPS ETC. USING CALL LIGHT APPROPRIATELY.
[2018-10-21 20:28] VITALS: BP 106/53
--- NOTE | 2018-10-22 05:15 | NUR ---
ASSUMED CARE AT 1920. ALERT AND ORIENTED. PLEASANT. CAN BE FORGETFUL. MILD WEAKNESS TO LEFT SIDE. LIKES O2 2L NC AT NIGHT. PAIN MEDS GIVEN PER REQUEST. XANAX AT HS. MIN ASSIST WITH GAIT BELT AND WALKER. UP TO BATHROOM. DOES OWN CARES. SLEPT WELL. CALL LIGHT IN REACH AND BED ALARM ON.
[2018-10-22 07:15] VITALS: BP 117/62
--- NOTE | 2018-10-22 18:46 | NUR ---
PATIENT ALERT AND ORIENTED X 4, DENIES COMPLAINTS OF PAIN OR DISCOMFORT. AMBULATING WITH GAIT BELT AND WALKER. NO SIGN OF DISTRESS.
--- NOTE | 2018-10-23 05:21 | NUR ---
ASSUMED PT CARE AT 1930. PT ALERT AND ORIENTED, POLITE AND COOPERATIVE WITH CARES. CAN BE FORGETFUL. PT SITTING AT SINK FINISHING BEDTIME RITUALS AT SHIFT CHANGE. TRANSFERS TO BED WITH MIN ASSIST, GAIT BELT AND WALKER. WEARS 2L 02 PER NC FOR COMFORT AT NIGHT. PRN PAIN MEDICATION AT HS. SLEPT WELL OVERNIGHT. USES CALL LIGHT APPROPRIATELY. CALL LIGHT AND FREQUENTLY USED ITEMS WITHIN REACH. HOURLY ROUNDING IN PROGRESS, WILL CONTINUE TO MONITOR.
[2018-10-23 07:49] VITALS: BP 132/68
--- NOTE | 2018-10-23 15:41 | NUR ---
PATIENT HAS HAD VISTORS MOST OF THE DAY. SHE IS AMBULATING WITH WALKER AND GAIT BELT. SUPERVISION FOR TRANSFERS AND AMBULATION. REQUESTED PAIN MEDS WHICH PATIENT REPORTS RELIEF OF GEN PAIN. NO FURTHER COMPLAINTS. CONT. WITH PLAN OF CARE.
[2018-10-23 20:00] VITALS: BP 111/42
--- NOTE | 2018-10-24 05:20 | NUR ---
ASSUMED PT CARE AT 1930. PT ALERT AND ORIENTED X4, POLITE AND COOPERATIVE WITH CARES. PT SOMETIMES FORGETFUL. PT UP TO BATHROOM WITH MIN ASSIST, GAIT BELT AND WALKER. WEARS 2L 02 PER NC FOR COMFORT AT NIGHT. PRN ANXIETY MEDICATION AT HS. SLEPT WELL OVERNIGHT. USES CALL LIGHT APPROPRIATELY. CALL LIGHT AND FREQUENTLY USED ITEMS WITHIN REACH. HOURLY ROUNDING IN PROGRESS, WILL CONTINUE TO MONITOR.
[2018-10-24 08:03] VITALS: BP 110/63
--- NOTE | 2018-10-24 13:45 | NUR ---
ASSUMED CARE AT 0730. ALERT ORIENTED PLEASANT COOPERATIVE. HX OF CVA L SIDE WEAKNESS. ALSO BRAIN CANCER. TRANSFERS WITH SBA G BELT AND WALKER AND AMBULATES TO BR TO VOID AND HAS HAD BMS X 3. ABLE TO DO HYGEINE AND CLOTHING ADJUSTMENTS. THINKING THROUGH TASKS MUCH BETTER. AMBULATED TO DR FOR LUNCH MEAL. FEEDS SELF USES CALL LIGHT APPROPRIATELY FOR ASSISTANCE. PARTICIPATING IN THERAPIES.
[2018-10-24 20:00] VITALS: BP 146/56
--- NOTE | 2018-10-25 05:09 | NUR ---
ASSUMED PT CARE AT 1930. PT ALERT AND ORIENTED, PLEASANT AND COOPERATIVE. SITTING IN RECLINER VISITING WITH AT SHIFT CHANGE. PT C/O PAIN RATED AT 10 ASCRIBING IT TO HAVING WORKED HARD IN THERAPY. PRN PAIN MEDICATION GIVEN TWICE THIS SHIFT WELL ANXIETY MEDICATION AT HS. UP WITH SBA, GAIT BELT AND WALKER. PT UP SEVERAL TIMES TO VOID, NO STOOL THIS SHIFT. PT WEARS 02 PER NC AT 2L OVERNIGHT FOR COMFORT. USES CALL LIGHT APPROPRIATELY. CALL LIGHT AND FREQUENTLY USED ITEMS WITHIN REACH. HOURLY ROUNDING IN PROGRESS, WILL CONTINUE TO MONITOR.
[2018-10-25 07:30] VITALS: BP 106/65
--- NOTE | 2018-10-25 11:22 | NUR ---
ASSUMED CARE AT 0730. ALERT ORIENTED PLEASANT COOPERATIVE. HX OF CVA L SIDE WEAKNESS AND BRAIN CA. TRANSFERS WITH SBA G BELT WALKER. AMBULATES TO BR AND IS ABLE TO DO HYGEINE AND CLOTHING ADJUSTMENTS. USES CALL LIGHT APPROPRIATELY FOR ASSIST. PROCESSING SEEMS BETTER THINKING THROUGH TASKS ETC. DENIES REQUESTS. PARTICIPATING IN THERAPIES.
[2018-10-25 19:55] VITALS: BP 111/60
--- NOTE | 2018-10-26 02:30 | NUR ---
ASSUMED CARE @ 1930-10/25-.SITS EDGE OF BED ON HER TABLET. VISITING. 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
[2018-10-26 05:08] LABS: ABSOLUTE EOSINOPHILS 0.2 thou/uL (0.0-0.7); ABSOLUTE LYMPHOCYTES 1.7 thou/uL (0.8-5.3); ABSOLUTE MONOCYTES 0.5 thou/uL (0.0-1.2); ABSOLUTE NEUTROPHILS 1.3 thou/uL (1.6-8.1); BASOPHILS 1.1 %; EOSINOPHILS 6.3 %; HEMATOCRIT 30.7 % (37.0-47.0); HEMOGLOBIN 10.5 gm/dL (12.0-15.0); LYMPHOCYTES 45.1 %; MCH 33.1 pg (26.0-34.0); MCHC 34.3 g/dL (28.0-37.0); MCV 96.4 fL (80.0-100.0); MONOCYTES 12.2 %; MPV 8.1 fl. (7.2-11.1); NUCLEATED RBCS 0 /100WBC; PLATELET COUNT* 175 thou/uL (150-400); POLYS 35.3 %; RBC 3.19 mil/uL (4.20-5.00); RDW-CV 14.9 % (10.5-14.5); WBC 3.8 thou/uL (4.0-11.0)
--- NOTE | 2018-10-26 05:19 | NUR ---
AWAKE MOST OF TIME.SLEEPING @ 0200 & 0400.AWAKENED BY LAB @ -0400 FOR BLOOD DRAW.SEE PAIN MANAGEMENT @ 2100 W/ PRN XANAX.O2 2L/NC FOR NIGHT USE.BRP W/ SBA X2.TOOK PROTEIN BARS HS SNACKS.
[2018-10-26 05:30] LABS: CALCIUM 9.1 mg/dL (8.5-10.1); CREATININE 0.9 mg/dL (0.6-1.3); POTASSIUM 4.1 mmol/L (3.5-5.1)
[2018-10-26 08:00] VITALS: BP 98/62
--- NOTE | 2018-10-26 15:22 | NUR ---
THOMAS and Dr Nunez met with pt to review team conference summary and plan for pt to dc home with tomorrow 10/27. Pt in agreement with plan. Possible HH vs OP therapies to follow. Pt has needed DME. THOMAS called pt [facility] who did not answer so SW left a detailed message reviewing team conference and plan for dc tomorrow, asking about transportation to OP or if HH would be the preference at dc. SW to continue to follow to assist with finalizing safe dc plan for tomorrow.
--- NOTE | 2018-10-26 16:06 | NUR ---
PATIENT VISITING WITH FRIENDS THIS AFTERNOON. NO COMPLAINTS OF PAIN THIS SHIFT. UP WITH SBA, GAIT BELT, AND WALKER. DISCHARGE PLANNED FOR TOMORROW.
[2018-10-26 20:19] VITALS: BP 109/58
--- NOTE | 2018-10-27 00:35 | NUR ---
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
--- NOTE | 2018-10-27 05:29 | NUR ---
SLEEPING SINCE 2051 & SLEPT GOOD ALL NIGHT.TOOK TURKEY SANDWICH,SODA & CHIPS HS SNACKS @ 2320.BRP X2 W/ SBA DURING NIGHT.FOR DISCHARGE TODAY-.
[2018-10-27 08:50] VITALS: BP 117/54
[2018-10-27] MEDS ORDERED: SPIRONOLACTONE25 MG PO (11:59)
[2018-10-27] MEDS ORDERED: MAGNESIUM400 MG PO (12:00)
[2018-10-27] MEDS ORDERED: SENOKOT-S TABL1 EACH PO (12:00)
[2018-10-27] MEDS ORDERED: PROTONIX40 M1 PO (12:01)
[2018-10-27] MEDS ORDERED: LIPITOR20 MG PO (12:03)
[2018-10-27 12:31] VITALS: BP 117/63
--- NOTE | 2018-10-27 14:53 | NUR ---
Pt to dc home with today. OP therapy services to follow; pt preference for [facility] OP therapy and says she will have friends and family available to provide rides. SW faxed referral and orders for OP PT OT [facility] to [facility] OP scheduling. Pt happy to be able to dc home today, pt to provide pt ride home.
--- NOTE | 2018-10-27 15:23 | NUR ---
AM ASSESSMENT AND VITAL SIGNS COMPLETED DOCUMENTED. PT HAS COMPLETED ALL THERAPIES, DISCHARGE INSTRUCTIONS PROVIDED TO PATIENT. PT AND BELONGINGS TRANSPORTED TO THE EXIT, DISCHARGED HOME IN STABLE CONDITION.
== END 2018-10-27 15:47 | disposition home or self-care (01) | DRG 56 ==
LOC: M.REH 15:49
PROVIDERS: Family Medicine; ADMIT Physical Medicine & Rehabilitation
DX: I69.354 Hemiplegia and hemiparesis following cerebral infarction affecting left non-dominant side (principal); I63.9 Cerebral infarction, unspecified; C71.9 Malignant neoplasm of brain, unspecified; L03.116 Cellulitis of left lower limb; L03.115 Cellulitis of right lower limb; G40.909 Epilepsy, unspecified, not intractable, without status epilepticus; E55.9 Vitamin D deficiency, unspecified; R26.9 Unspecified abnormalities of gait and mobility; D70.9 Neutropenia, unspecified; K59.03 Drug induced constipation; T40.2X5A Adverse effect of other opioids, initial encounter; D69.6 Thrombocytopenia, unspecified; Z88.6 Allergy status to analgesic agent; Z88.2 Allergy status to sulfonamides; Z88.8 Allergy status to other drugs, medicaments and biological substances; Z90.49 Acquired absence of other specified parts of digestive tract; Z87.442 Personal history of urinary calculi; Z90.710 Acquired absence of both cervix and uterus; Z79.82 Long term (current) use of aspirin; Z79.899 Other long term (current) drug therapy; Z83.3 Family history of diabetes mellitus; Z82.49 Family history of ischemic heart disease and other diseases of the circulatory system; Y92.89 Other specified places as the place of occurrence of the external cause

== ENCOUNTER 2018-11-29 14:10 | Emergency (ER) | payer MEDICARE, BC ==
[~2018-11-29] VITALS: Ht 160 cm; Wt 78.9 kg
[~2018-11-29 14:10] MED LIST changes: +GABAPENTIN 100100 MG PO; +MAGNESIUM400 MG PO; +SPIRONOLACTONE25 MG PO
--- NOTE | 2018-11-29 14:13 | NUR ---
PT ARRIVED FOR OUTPATIENT SPEECH THERAPY AT 1400 THIS DATE. PT PRESENTED C FACIAL DROOP, REPORT OF MULTIPLE FALLS, DECREASED BALANCE, AND INCREASED LEFT HAND WEAKNESS. UPON OBSERVING THESE SYMPTOMS, PT WAS DIRECTED TO THE ER FOR FURTHER TESTING AND TREATMENT.
[2018-11-29] MEDS ORDERED: LASIX 20 MG TAB20 MG PO (14:23)
[2018-11-29] MEDS ORDERED: PROBIOTIC1 EAC2 PO (14:24)
[2018-11-29] MEDS ORDERED: BIOTIN5 MG PO (14:24)
[2018-11-29 15:40] LABS: ABSOLUTE EOSINOPHILS 0.1 thou/uL (0.0-0.7); ABSOLUTE LYMPHOCYTES 1.6 thou/uL (0.8-5.3); ABSOLUTE MONOCYTES 0.6 thou/uL (0.0-1.2); ABSOLUTE NEUTROPHILS 1.7 thou/uL (1.6-8.1); BASOPHILS 0.4 %; EOSINOPHILS 1.6 %; HEMATOCRIT 31.8 % (37.0-47.0); HEMOGLOBIN 10.8 gm/dL (12.0-15.0); LYMPHOCYTES 40.9 %; MCH 31.4 pg (26.0-34.0); MCHC 34.1 g/dL (28.0-37.0); MCV 92.3 fL (80.0-100.0); MONOCYTES 14.7 %; MPV 7.1 fl. (7.2-11.1); NUCLEATED RBCS 0 /100WBC; PLATELET COUNT* 161 thou/uL (150-400); POLYS 42.4 %; RBC 3.45 mil/uL (4.20-5.00); RDW-CV 14.5 % (10.5-14.5); WBC 3.9 thou/uL (4.0-11.0)
[2018-11-29 15:47] LABS: CREATININE 0.8 mg/dL (0.6-1.3); POTASSIUM 4.1 mmol/L (3.5-5.1); PROTIME 10.2 Seconds (9.20-11.50)
[2018-11-29 15:52] LABS: ALBUMIN 3.4 g/dL (3.4-5.0); MAGNESIUM 2.1 mg/dL (1.8-2.4); TOTAL BILIRUBIN 0.5 mg/dL (<0.1-1.0); TOTAL PROTEIN 6.5 g/dL (6.4-8.2)
[2018-11-29 16:00] LABS: URINE BILIRUBIN NEGATIVE (Negative); URINE BLOOD NEGATIVE (Negative); URINE CLARITY CLEAR; URINE COLOR YELLOW; URINE GLUCOSE-RANDOM NEGATIVE (Negative); URINE KETONES NEGATIVE (Negative); URINE LEUKOCYTES-REFLEX TRACE (Negative); URINE NITRITE-REFLEX NEGATIVE (Negative); URINE PROTEIN NEGATIVE (Negative); URINE UROBILINOGEN 0.2 E.U./dl (0.2-1.0)
[2018-11-29 16:07] LABS: MUCUS None Seen strn/LPF (None Seen); SQUAMOUS 0-3 Few /LPF (0-3)
[2018-11-29 16:08] LABS: URINE WBC-REFLEX 0-5 Rare /HPF (0-5)
[2018-11-29 16:09] LABS: BACTERIA-REFLEX 1-9 Few /HPF (None Seen)
[2018-11-29 16:10] LABS: CRYSTALS None Seen /LPF (None Seen); URINE RBC None Seen /HPF (0-2)
[2018-11-29 16:11] LABS: CASTS None Seen /LPF (None Seen)
[2018-11-29 19:46] VITALS: BP 141/77
== END 2018-11-29 19:47 | disposition home or self-care (01) ==
LOC: M.ERS 14:10
PROVIDERS: Personal Emergency Response Attendant
DX: C71.9 Malignant neoplasm of brain, unspecified (principal); I11.0 Hypertensive heart disease with heart failure; I50.9 Heart failure, unspecified; M79.7 Fibromyalgia; G43.909 Migraine, unspecified, not intractable, without status migrainosus; E03.9 Hypothyroidism, unspecified; G62.9 Polyneuropathy, unspecified; Z88.5 Allergy status to narcotic agent; Z88.2 Allergy status to sulfonamides; Z88.8 Allergy status to other drugs, medicaments and biological substances; Z87.442 Personal history of urinary calculi; Z86.2 Personal history of diseases of the blood and blood-forming organs and certain disorders involving the immune mechanism; Z90.49 Acquired absence of other specified parts of digestive tract; Z90.710 Acquired absence of both cervix and uterus

== ENCOUNTER 2018-12-13 19:24 | Inpatient (IN) | payer MEDICARE, BC | END 2018-12-16 13:45 | disposition home health service (06) | DRG 206 | LOC: M.ERS 19:24 → M.TBA-ER 21:44 → M.2W 23:53 | PROVIDERS: ADMIT Internal Medicine | DX: M94.0 Chondrocostal junction syndrome [Tietze] (principal); C71.9 Malignant neoplasm of brain, unspecified; I69.354 Hemiplegia and hemiparesis following cerebral infarction affecting left non-dominant side; I50.9 Heart failure, unspecified; E03.9 Hypothyroidism, unspecified; I11.0 Hypertensive heart disease with heart failure; G43.909 Migraine, unspecified, not intractable, without status migrainosus; G62.9 Polyneuropathy, unspecified; G40.909 Epilepsy, unspecified, not intractable, without status epilepticus; D72.819 Decreased white blood cell count, unspecified; Z79.899 Other long term (current) drug therapy; Z88.6 Allergy status to analgesic agent; Z88.2 Allergy status to sulfonamides; Z88.8 Allergy status to other drugs, medicaments and biological substances; Z87.442 Personal history of urinary calculi; Z90.49 Acquired absence of other specified parts of digestive tract; Z90.710 Acquired absence of both cervix and uterus; Z82.49 Family history of ischemic heart disease and other diseases of the circulatory system; Z85.43 Personal history of malignant neoplasm of ovary ==